=== PATIENT | male | born 2000 | race Caucasian/White ===

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

== ENCOUNTER 2022-05-16 22:50 | Emergency (ER) | payer MEDICAID, OTHER ==
[~2022-05-16] VITALS: Ht 180.3 cm; Wt 95.5 kg
[~2022-05-16 22:50] MED LIST changes: +CLIN150C8 PO
[2022-05-16 23:06] VITALS: BP 146/91
[2022-05-16] MEDS ORDERED: dexamethasone sod phosphate 10mg/ml inj PO STA (23:06)
[2022-05-16] MEDS ORDERED: diphenhydrAMINE 50 mg/ml inj IM ONE (23:10)
== END 2022-05-16 23:33 | disposition home or self-care (01) ==
LOC: ER 22:51
DX: L25.9 Unspecified contact dermatitis, unspecified cause (principal); J45.909 Unspecified asthma, uncomplicated; Z88.0 Allergy status to penicillin; Z79.899 Other long term (current) drug therapy
CPT/HCPCS: 96372; 99283; J1100; J1200

== ENCOUNTER 2022-11-11 14:31 | Emergency (ER) | payer OTHER, MEDICAID ==
[~2022-11-11] VITALS: Ht 175.3 cm; Wt 101.0 kg
[~2022-11-11 14:31] MED LIST changes: +CLIN-214 PO; -CLIN150C8 PO
[2022-11-11 15:16] VITALS: BP 142/81
[2022-11-11] MEDS ORDERED: IBUP-1986 PO (17:41)
[2022-11-11] MEDS ORDERED: CYCL-1 PO (17:41)
[2022-11-11] MEDS ORDERED: ketorolac trometh. 30mg/ml inj. IM ONE (17:45)
== END 2022-11-11 17:58 | disposition home or self-care (01) ==
LOC: ER 14:32
DX: M54.2 Cervicalgia (principal); M25.519 Pain in unspecified shoulder; J45.909 Unspecified asthma, uncomplicated; Z90.89 Acquired absence of other organs; Z88.0 Allergy status to penicillin; Z79.899 Other long term (current) drug therapy; V87.7XXA Person injured in collision between other specified motor vehicles (traffic), initial encounter; Y93.89 Activity, other specified; Y92.488 Other paved roadways as the place of occurrence of the external cause; Y99.8 Other external cause status
CPT/HCPCS: 96372; 99283; J1885